=== PATIENT | male | born 1985 | race Caucasian/White ===

== ENCOUNTER 2018-09-01 13:29 | Emergency (ER) | payer BC ==
[2018-09-01 13:41] VITALS: BP 135/86; PULSE 62; TEMP 97.8; BMI 24.4
== END 2018-09-01 17:15 | disposition left against medical advice (07) ==
LOC: JER 13:29
DX: Z53.21 Procedure and treatment not carried out due to patient leaving prior to being seen by health care provider (principal)
CPT/HCPCS: 99281-25